=== PATIENT | male | born 1945 | race Caucasian/White ===

== ENCOUNTER 2019-06-03 12:00 | Day surgery (SDC) | payer MEDICARE, BC ==
[~2019-06-03] VITALS: Ht 188 cm; Wt 74.1 kg
[2019-06-03] VITALS (7 sets, daily range): BP systolic 105–143; BP diastolic 69–96
[~2019-06-03 12:00] MED LIST: COU7.5T PO; DILT240T; DIPH-423 PO; DRON400T6 PO; FLAX100010 PO; MULT1TAB PO; [UNRECOGNIZED DRUG - CODE]; [UNRECOGNIZED DRUG - CODE] PO
[2019-06-03] MEDS ORDERED: cefazolin/dext.iso 2gm/50ml 50 ML IV ONE (12:45)
[2019-06-03] MEDS ORDERED: normal saline 1000ml 1,000 ML IV PRN (12:45)
[2019-06-03 13:02] LABS: HEMATOCRIT 29.5 % (42.0-52.0); HEMOGLOBIN 10.2 g/dl (14.0-17.9); MEAN CORPUSCULAR HEMOGLOBIN 34.9 PG (27.0-31.0); MEAN CORPUSCULAR HGB CONC 34.7 g/dL (33.0-36.5); MEAN CORPUSCULAR VOLUME 100.7 FL (78-98); RED BLOOD COUNT 2.93 X10'6 (4.70-6.10); WHITE BLOOD COUNT 5.6 X10'3 (4.5-11.0)
[2019-06-03 13:03] LABS: BASOPHILS % (AUTO) 0.6 % (0-1); EOSINOPHILS # (AUTO) 0.2 X10'3 (0-0.9); EOSINOPHILS % (AUTO) 2.9 % (0-6); LYMPHOCYTES # (AUTO) 1.3 X10'3 (1.1-4.8); LYMPHOCYTES % (AUTO) 22.7 % (21-51); MEAN PLATELET VOLUME 7.2 FL (7.4-10.4); MONOCYTES # (AUTO) 0.6 X10'3 (0-0.9); MONOCYTES % (AUTO) 9.9 % (2-12); NEUTROPHILS # (AUTO) 3.6 X10'3 (1.8-7.7); NEUTROPHILS % (AUTO) 63.9 % (42-75); PLATELET COUNT 229 X10'3 (140-440); RED CELL DISTRIBUTION WIDTH 14.5 % (11.5-14.5)
[2019-06-03] MEDS ORDERED: MIRT45TA79 PO (13:03)
[2019-06-03] MEDS ORDERED: QUET50TA PO (13:03)
[2019-06-03] MEDS ORDERED: RIVA15TA PO (13:03)
[2019-06-03] MEDS ORDERED: ROPI1TAB4 PO (13:03)
[2019-06-03] MEDS ORDERED: PROP150T2 PO (13:03)
[2019-06-03] MEDS ORDERED: LORA-269 PO (13:03)
[2019-06-03] MEDS ORDERED: FOLI0.4T2 PO (13:03)
[2019-06-03] MEDS ORDERED: FA/V1TAB PO (13:03)
[2019-06-03] MEDS ORDERED: ESCI10TA54 PO (13:03)
[2019-06-03] MEDS ORDERED: LEVO112T39 PO (13:03)
[2019-06-03 13:14] LABS: ALBUMIN 2.7 G/DL (3.4-5.0); ANION GAP 10 (8-16); BLOOD UREA NITROGEN 57 MG/DL (7-18); BUN/CREATININE RATIO 8.6 (5.4-32.0); CALCIUM 9.1 MG/DL (8.5-10.1); CHLORIDE 101 MMOL/L (99-107); CREATININE 6.64 MG/DL (0.60-1.10); GLUCOSE 84 MG/DL (70-104); POTASSIUM 5.1 MMOL/L (3.5-5.1); SODIUM 141 MMOL/L (135-145); TOTAL CARBON DIOXIDE 29.7 MMOL/L (24-32); eGFR 8 ML/MIN
[2019-06-03] MEDS ORDERED: midazolam 2 mg/2 ml injection IV PRN (13:50)
[2019-06-03] MEDS ORDERED: heparin 1,000 units/ml 10ml inj ICATH ONE (13:50)
[2019-06-03] MEDS ORDERED: fentaNYL/PF 50MCG/1 ML 2ML syringe IV PRN (13:50)
[2019-06-03] MEDS ORDERED: LIDOcaine 1%/PF 5ML 10 MG/ML VIAL SQ ONE (13:50)
[2019-06-03] MEDS ORDERED: heparin 1,000unit/ml 10ml vial 10 ML ONE (15:29)
[2019-06-03] MEDS ORDERED: fentaNYL/PF 50MCG/1 ML 2ML syringe ONE (15:30)
[2019-06-03] MEDS ORDERED: LIDOcaine 1%/PF 5ML 10 MG/ML VIAL ONE (15:30)
[2019-06-03] MEDS ORDERED: midazolam 2 mg/2 ml injection ONE (15:30)
[2019-06-03] MEDS ORDERED: gelatin sponge, absorbable (Gelfoam 12-7MM) sponge TP ONE (16:17)
== END 2019-06-03 18:30 | disposition home or self-care (01) ==
LOC: SSTAY O 12:00
PROVIDERS: ATTEND Radiology Diagnostic Radiology
DX: T82.49XA Other complication of vascular dialysis catheter, initial encounter (principal); N18.9 Chronic kidney disease, unspecified; Z79.899 Other long term (current) drug therapy; Z79.01 Long term (current) use of anticoagulants; Z87.891 Personal history of nicotine dependence; Z99.2 Dependence on renal dialysis; Z85.528 Personal history of other malignant neoplasm of kidney; Y83.2 Surgical operation with anastomosis, bypass or graft as the cause of abnormal reaction of the patient, or of later complication, without mention of misadventure at the time of the procedure; Y92.89 Other specified places as the place of occurrence of the external cause
CPT/HCPCS: 36415; 36581; 80048; 85025; 85610; 99152; 99153; C1750; C1769; J1644; J2250; J3010; J7030

== ENCOUNTER 2020-02-24 05:55 | Day surgery (SDC) | payer MEDICARE, BC ==
[~2020-02-24] VITALS: Ht 162.6 cm; Wt 72.6 kg
[2020-02-24] VITALS (10 sets, daily range): BP systolic 92–112; BP diastolic 64–86
[~2020-02-24 05:55] MED LIST changes: +ESCI10TA61 PO; +FA/V1TAB PO; +FOLI0.4T2 PO; +LEVO112T39 PO; +LORA-269 PO; +MIRT45TA79 PO; +PROP150T2 PO; +QUET50TA PO; +RIVA15TA PO; +ROPI1TAB6 PO
[2020-02-24] MEDS ORDERED: MIDAZolam 1mg/ml 10ml vial IV ONE (06:15)
[2020-02-24] MEDS ORDERED: normal saline 1000ml 1,000 ML IV SCH (06:15)
[2020-02-24] MEDS ORDERED: fentaNYL/PF 50MCG/1 ML 2ML syringe IV ONE (06:15)
[2020-02-24] MEDS ORDERED: PROP225C9 PO (06:24)
[2020-02-24] MEDS ORDERED: QUET25TA34 PO (06:24)
[2020-02-24] MEDS ORDERED: SEVE800T28 PO (06:24)
[2020-02-24] MEDS ORDERED: DILT180T2 PO (06:24)
[2020-02-24 06:49] LABS: BASOPHILS % (AUTO) 0.7 % (0-1); EOSINOPHILS # (AUTO) 0.1 X10'3 (0-0.9); EOSINOPHILS % (AUTO) 1.9 % (0-6); HEMATOCRIT 29.9 % (42.0-52.0); HEMOGLOBIN 10.3 g/dl (14.0-17.9); LYMPHOCYTES # (AUTO) 1.3 X10'3 (1.1-4.8); LYMPHOCYTES % (AUTO) 29.2 % (21-51); MEAN CORPUSCULAR HEMOGLOBIN 36.1 PG (27.0-31.0); MEAN CORPUSCULAR HGB CONC 34.4 g/dL (33.0-36.5); MEAN CORPUSCULAR VOLUME 105.2 FL (78-98); MONOCYTES # (AUTO) 0.3 X10'3 (0-0.9); MONOCYTES % (AUTO) 7.3 % (2-12); NEUTROPHILS # (AUTO) 2.6 X10'3 (1.8-7.7); NEUTROPHILS % (AUTO) 60.9 % (42-75); PLATELET COUNT 129 X10'3 (140-440); RED BLOOD COUNT 2.84 X10'6 (4.70-6.10); RED CELL DISTRIBUTION WIDTH 15.6 % (11.5-14.5); WHITE BLOOD COUNT 4.3 X10'3 (4.5-11.0)
[2020-02-24 07:06] LABS: ALBUMIN 3.2 G/DL (3.4-5.0); ANION GAP 5 (8-16); BLOOD UREA NITROGEN 23 MG/DL (7-18); BUN/CREATININE RATIO 5.8 (5.4-32.0); CALCIUM 8.7 MG/DL (8.5-10.1); CHLORIDE 104 MMOL/L (99-107); CREATININE 3.99 MG/DL (0.60-1.10); GLUCOSE 95 MG/DL (70-104); POTASSIUM 4.4 MMOL/L (3.5-5.1); SODIUM 143 MMOL/L (135-145); TOTAL CARBON DIOXIDE 33.8 MMOL/L (24-32); eGFR 15 ML/MIN
== END 2020-02-24 08:45 | disposition home or self-care (01) ==
LOC: SSTAY O 05:55
PROVIDERS: ATTEND Internal Medicine Interventional Cardiology
DX: I48.91 Unspecified atrial fibrillation (principal)
CPT/HCPCS: 36415; 80048; 85025; 85610; 92960; 94760; J2250; J3010; J7030; 93005

== ENCOUNTER → 2020-04-22 | Outpatient (CLI) | payer OTHER, MEDICARE, BC ==
[~2020-04-22] MED LIST changes: +APIX5TAB3 PO; +CARCD120C PO; -COU7.5T PO; -DILT240T; -DIPH-423 PO; +DOCU-148 PO; -DRON400T6 PO; -ESCI10TA61 PO; +ESCI5TAB PO; -FA/V1TAB PO; -FLAX100010 PO; +FOLI0.4T14 PO; -FOLI0.4T2 PO; +FOLI1TAB34 PO; +METO-395 PO; -MULT1TAB PO; +POLY17PO10 PO; -PROP150T2 PO; +PROP225C9 PO; +QUET-1 PO; -QUET50TA PO; -RIVA15TA PO; +SEVE800T28 PO; -[UNRECOGNIZED DRUG - CODE]; -[UNRECOGNIZED DRUG - CODE] PO
== END | disposition home or self-care (01) ==
LOC: 64 CT 08:40
PROVIDERS: ATTEND Internal Medicine
DX: R91.1 Solitary pulmonary nodule (principal); J90 Pleural effusion, not elsewhere classified
CPT/HCPCS: 71250